=== PATIENT | female | born 1995 | race African-American/Black ===

== ENCOUNTER 2018-01-12 10:06 | Emergency (ER) | payer OTHER ==
[2018-01-12 10:18] VITALS: BP 125/94; PULSE 77; TEMP 98; BMI 23.8
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
== END 2018-01-12 11:21 | disposition home or self-care (01) ==
LOC: JERFT 10:06
DX: S46.912A Strain of unspecified muscle, fascia and tendon at shoulder and upper arm level, left arm, initial encounter (principal); S29.011A Strain of muscle and tendon of front wall of thorax, initial encounter; S29.012A Strain of muscle and tendon of back wall of thorax, initial encounter; V49.49XA Driver injured in collision with other motor vehicles in traffic accident, initial encounter; Y92.488 Other paved roadways as the place of occurrence of the external cause; Y93.89 Activity, other specified; Y99.8 Other external cause status
CPT/HCPCS: 99281-25

== ENCOUNTER → 2021-11-03 | Day surgery (SDC) | payer OTHER | END | disposition home or self-care (01) | LOC: JRADUS-SUR 09:24 → EDSTATUS 11:00 | PROVIDERS: ATTEND Physician Assistant | DX: Z53.8 Procedure and treatment not carried out for other reasons (principal) | CPT/HCPCS: 84703 ==